=== PATIENT | female | born 1945 | race Caucasian/White ===

== ENCOUNTER → 2016-07-05 | Outpatient (CLI) | payer OTHER | LOC: BHFA 13:00 | PROVIDERS: ATTEND Internal Medicine Cardiovascular Disease | DX: R55 Syncope and collapse (principal) ==

== ENCOUNTER → 2016-07-07 | Outpatient (CLI) | payer OTHER | LOC: BHFA 13:00 | PROVIDERS: ATTEND Internal Medicine Cardiovascular Disease | DX: R55 Syncope and collapse (principal) | CPT/HCPCS: 78452; 93017; 93306; A9500; J2785 ==

== ENCOUNTER → 2016-08-12 | Outpatient (CLI) | payer OTHER | LOC: BHCLAF 14:45 | PROVIDERS: ATTEND Internal Medicine Cardiovascular Disease | DX: R55 Syncope and collapse (principal) | CPT/HCPCS: 93880-PO ==

== ENCOUNTER → 2016-09-06 | Outpatient (CLI) | payer OTHER | LOC: FIMAGING 19:54 | DX: M41.86 Other forms of scoliosis, lumbar region (principal) ==

== ENCOUNTER 2017-05-18 10:44 | Outpatient (CLI) | payer OTHER ==
[2017-05-18] MEDS ORDERED: PROPOFOL/EMULSION 500 MG/50 ML BOTTLE IV ONE (11:37)
[2017-05-18] MEDS ORDERED: PROPOFOL 200 MG/20 ML VIAL ONE (11:37)
[2017-05-18] MEDS ORDERED: GADOBUTROL 10 ML VIAL IVP ONE (12:53)
[2017-05-18] MEDS ORDERED: MIDAZOLAM 2 MG/2 ML VIAL ONE (13:05)
[2017-05-18] MEDS ORDERED: fentaNYL 100 MCG/2 ML INJ ONE (13:05)
[2017-05-18] MEDS ORDERED: ALBUTEROL 3 ML DEYVIAL IH PRN (14:09)
[2017-05-18] MEDS ORDERED: ACETAMINOPHEN 500 MG TAB PO PRN (14:09)
[2017-05-18] MEDS ORDERED: ONDANSETRON 4 MG/2 ML VIAL IVP PRN (14:09)
[2017-05-18] MEDS ORDERED: NALOXONE HCL 0.4 MG/ML INJ IVP PRN (14:09)
[2017-05-18] MEDS ORDERED: LR 500 ML IV PRN (14:09)
[2017-05-18] MEDS ORDERED: LABETALOL HCL 5 MG/ML 20 ML MDV IVP PRN (14:09)
[2017-05-18] MEDS ORDERED: PHENYLEPHRINE HCL 100 MCG/ML SYR IVP PRN (14:09)
--- NOTE | 2017-05-18 14:14 | PDANEPAE ---
ANE History of Present Illness 71 year old woman for B breast MRI. History of severe anxiety associated with prior MRI. Requesting general anesthesia for prone position MRI. ANE Past Medical History - Cardiovascular History Hx Hypertension: No Hx Arrhythmias: No Hx Chest Pain: No Hx Coronary Artery / Peripheral Vascular Disease: No Hx CHF / Valvular Disease: No Hx Palpitations: No - Pulmonary History Hx COPD: Yes Hx Asthma/Reactive Airway Disease: Yes Hx Recent Upper Respiratory Infection: No Hx Oxygen in Use at Home: No Hx Sleep Apnea: No Sleep Apnea Screening Result - Last Documented: Negative Pulmonary History Comment: [place] - Neurologic History Hx Cerebrovascular Accident: No Hx Seizures: No Hx Dementia: No - Endocrine History Hx Diabetes: No - Renal History Hx Renal Disorders: No - Liver History Hx Hepatic Disorders: No - Neurological & Psychiatric Hx Hx Neurological and Psychiatric Disorders: Yes Neurological / Psychiatric History Comment: Depression. Anxiety - Cancer History Hx Cancer: Yes Cancer History Comment: Left breast - Congenital Disorder History Hx Congenital Disorders: No - GI History Hx Gastrointestinal Disorders: Yes Gastrointestinal History Comment: IBS. Acid reflux. Diverticulosis - Chronic Pain History Chronic Pain: Yes - Surgical History Prior Surgeries: Hysterectomy. Appendectomy. Bilat rotator cuff. Bilat knee scoped. Right elbow. Tympanomastoidectomy. Tympanoplasty x2. Sinus lift oral surgery. Lumpectomy left breast ANE Review of Systems Review of systems is: negative Review of Systems: - Exercise capacity METS (RN): 2 METS ANE Patient History - Allergies Allergies/Adverse Reactions: aripiprazole [From Abilify] Allergy (Severe, Verified 04/12/17 18:14) Other-Enter Comments iodine Allergy (Severe, Verified 08/30/12 18:01) Anaphylaxis metoclopramide HCl [From Reglan] Allergy (Severe, Verified 08/30/12 18:01) throat swelling/SOB Sulfa (Sulfonamide Antibiotics) Allergy (Severe, Verified 08/30/12 18:01) Anaphylaxis celecoxib [From Celebrex] Allergy (Intermediate, Verified 04/12/17 18:17) Dyspnea clindamycin HCl [From Cleocin] Allergy (Intermediate, Verified 08/30/12 18:01) Rash clindamycin palmitate HCl [From Cleocin] Allergy (Intermediate, Verified 18:01) Rash clindamycin phosphate [From Cleocin] Allergy (Intermediate, Verified 08/30/12 18 :01) Rash estrogens, conjugated [From Premarin] Allergy (Intermediate, Verified 04/12/17 18:17) Rash Penicillins Allergy (Intermediate, Verified 08/30/12 18:01) Rash phenobarbital Allergy (Intermediate, Verified 08/30/12 18:01) Rash rosuvastatin [From Crestor] Allergy (Intermediate, Verified 04/12/17 18:16) Rash tetracycline [Tetracycline] Allergy (Intermediate, Verified 08/30/12 18:01) Rash Tetracyclines Allergy (Intermediate, Verified 08/30/12 18:01) Rash amoxicillin [From Augmentin] Allergy (Verified 04/17/17 15:50) atorvastatin Allergy (Verified 04/17/17 15:50) Barbiturates Allergy (Verified 04/17/17 15:50) clavulanic acid [From Augmentin] Allergy (Verified 04/17/17 15:50) clindamycin [From Cleocin] Allergy (Verified 04/17/17 15:50) Estrogens Allergy (Verified 04/17/17 15:50) Gadolinium-Containing Contrast Medi Allergy (Verified 04/17/17 15:47) throat swelling/SOB gluten Allergy (Verified 04/17/17 15:50) latex Allergy (Verified 04/11/17 14:09) lovastatin Allergy (Verified 04/17/17 15:50) peanut Allergy (Verified 04/17/17 15:50) pravastatin Allergy (Verified 04/17/17 15:50) simvastatin Allergy (Verified 04/17/17 15:50) "Bee stings" Allergy (Severe, Uncoded 04/12/17 18:15) Anaphylaxis peanuts Allergy (Severe, Uncoded 08/30/12 18:01) throat swelling/SOB "statins" Allergy (Intermediate, Uncoded 04/12/17 18:15) Dyspnea - Home Medications Home Medications: Albuterol [Proventil Inhaler] 1 - 2 puffs IH AD PRN 08/30/12 [Last Taken Unknown ] Estradiol [Estrace Vaginal] 0 gm VAG .TWICE WEEKLY 08/30/12 [Last Taken Unknown] Ezetimibe [Zetia 10 MG (RX)] 10 mg PO HS 08/30/12 [Last Taken Unknown] Hrt Shot .MONTHLY 08/30/12 [Last Taken Unknown] Ibuprofen [Motrin] 800 mg PO AD PRN 08/30/12 [Last Taken 05/11/17 1900] Levothyroxine [Synthroid 175 mcg (RX)] 175 mcg PO DAILY06 08/30/12 [Last Taken 05/18/17 0500] Rabeprazole Sodium [Aciphex] 20 mg PO BID 08/30/12 [Last Taken 05/18/17 0500] Spironolactone [Aldactone 25 MG (RX)] 100 mg PO BID 08/30/12 [Last Taken 0500] Tiotropium Inhaler [Spiriva Inhaler (RX)] 1 inh IH DAILY 08/30/12 [Last Taken 0500] buPROPion SR [Wellbutrin 100mg SR (RX)] 300 mg PO BID 08/30/12 [Last Taken 05/18 0430] HYDROCORTISONE/IODOQUINOL 04/12/17 [Last Taken 05/11/17 1900] Hydrocodone/Acetaminophen [Hydrocodone-Acetamin 7.5-325] 04/12/17 [Last Taken 05/18/17 0500] - Smoking Hx Smoking Status: Former smoker - Family Anes Hx Family Hx Anesthesia Complications: None ANE Labs/Vital Signs - Labs Result Diagrams: 05/18/17 11:53 - Vital Signs Blood Pressure: 115/83 Heart Rate: 111 Respiratory Rate: 18 O2 Sat (%): 92 Height: 152.4 cm Weight: 68.946 kg ANE Physical Exam - Airway Neck exam: FROM Mallampati Score: Class 3 Mouth exam: normal dental/mouth exam - Pulmonary Pulmonary: no respiratory distress - Cardiovascular Cardiovascular: regular rate and rhythym - ASA Status ASA Status: III ANE Anesthesia Plan Anesthesia Plan: general endotracheal anesthesia Specialized Airway: video laryngoscope
--- NOTE | 2017-05-18 14:49 | POSTANESTH ---
Post Anesthetic Evaluation Cardiovascular Status: Normal, Stable Respiratory Status: Normal, Stable Level of Consciousness/Mental Status: Can Participate in Eval Pain Control: Adequate, Prn Tx Ordered Nausea/Vomiting Control: Adequate, Prn Tx Ordered Complications Possibly Related to Anesthesia: None Noted
[2017-05-18 15:37] VITALS: BP 122/85; PULSE 105; RESP 12; TEMP 97.5
[2017-05-18] MEDS ORDERED: ONDANSETRON 4 MG/2 ML VIAL ONE (16:27)
[2017-05-18] MEDS ORDERED: DEXAMETHASONE 10 MG/ML VIAL ONE (16:27)
[2017-05-18] MEDS ORDERED: LIDOCAINE 2% 2 ML INJ ONE (16:42)
[2017-05-18 16:44] VITALS: O2SAT 93
== END 2017-05-18 16:00 | disposition home or self-care (01) ==
LOC: FIMAGING 10:44
PROVIDERS: ATTEND Internal Medicine Hematology & Oncology
DX: D05.02 Lobular carcinoma in situ of left breast (principal); N62 Hypertrophy of breast
CPT/HCPCS: 0159T; A9585; C8908; J1100; J2250; J2370; J2405; J2704; J3010

== ENCOUNTER → 2017-07-24 | Outpatient (CLI) | payer OTHER | LOC: FIMAGING 18:37 | DX: M51.36 Other intervertebral disc degeneration, lumbar region (principal) ==

== ENCOUNTER 2017-09-28 10:55 | Outpatient (CLI) | payer OTHER ==
[2017-09-28] MEDS ORDERED: GADOBUTROL 10 ML VIAL IVP ONE (12:49)
[2017-09-28] MEDS ORDERED: MIDAZOLAM 2 MG/2 ML VIAL ONE (13:10)
[2017-09-28] MEDS ORDERED: PROPOFOL/EMULSION 500 MG/50 ML BOTTLE IV ONE (13:10)
[2017-09-28] MEDS ORDERED: fentaNYL 100 MCG/2 ML INJ ONE (13:10)
[2017-09-28] MEDS ORDERED: LR 1,000 ML IV SCH (13:30)
--- NOTE | 2017-09-28 13:57 | PDANEPAE ---
ANE History of Present Illness Patient for MRI of breast with MAC. Severe anxiety associated with MRI. History of COPD. History of difficult airway. ANE Past Medical History - Cardiovascular History Hx Hypertension: No Hx Arrhythmias: No Hx Chest Pain: No Hx Coronary Artery / Peripheral Vascular Disease: No Hx CHF / Valvular Disease: No Hx Palpitations: No - Pulmonary History Hx COPD: Yes Hx Asthma/Reactive Airway Disease: Yes Hx Recent Upper Respiratory Infection: No Hx Oxygen in Use at Home: No Hx Sleep Apnea: No Sleep Apnea Screening Result - Last Documented: Negative Pulmonary History Comment: [place] - Neurologic History Hx Cerebrovascular Accident: No Hx Seizures: No Hx Dementia: No - Endocrine History Hx Diabetes: No Endocrine History Comment: hypoglycemia - Renal History Hx Renal Disorders: No - Liver History Hx Hepatic Disorders: No - Neurological & Psychiatric Hx Hx Neurological and Psychiatric Disorders: Yes Neurological / Psychiatric History Comment: Depression. Anxiety. PTSD - Cancer History Hx Cancer: Yes Cancer History Comment: Left breast - Congenital Disorder History Hx Congenital Disorders: No - GI History Hx Gastrointestinal Disorders: Yes Gastrointestinal History Comment: IBS. Acid reflux. Diverticulosis - Chronic Pain History Chronic Pain: Yes - Surgical History Prior Surgeries: Hysterectomy. Appendectomy. Bilat rotator cuff. Bilat knee scoped. Right elbow. Tympanomastoidectomy. Tympanoplasty x2. Sinus lift oral surgery. Lumpectomy left breast ANE Review of Systems Review of systems is: negative Review of Systems: - Exercise capacity METS (RN): 4 METS ANE Patient History - Allergies Allergies/Adverse Reactions: aripiprazole [From Abilify] Allergy (Severe, Verified 09/27/17 17:40) Other-Enter Comments iodine Allergy (Severe, Verified 09/27/17 17:40) Anaphylaxis metoclopramide HCl [From Reglan] Allergy (Severe, Verified 09/27/17 17:40) throat swelling/SOB Sulfa (Sulfonamide Antibiotics) Allergy (Severe, Verified 09/27/17 17:40) Anaphylaxis celecoxib [From Celebrex] Allergy (Intermediate, Verified 09/27/17 17:40) Dyspnea clindamycin HCl [From Cleocin] Allergy (Intermediate, Verified 09/27/17 17:40) Rash clindamycin palmitate HCl [From Cleocin] Allergy (Intermediate, Verified 17:40) Rash clindamycin phosphate [From Cleocin] Allergy (Intermediate, Verified 09/27/17 17 :40) Rash estrogens, conjugated [From Premarin] Allergy (Intermediate, Verified 09/27/17 17:40) Rash Penicillins Allergy (Intermediate, Verified 09/27/17 17:40) Rash phenobarbital Allergy (Intermediate, Verified 09/27/17 17:40) Rash rosuvastatin [From Crestor] Allergy (Intermediate, Verified 09/27/17 17:40) Rash tetracycline [Tetracycline] Allergy (Intermediate, Verified 09/27/17 17:40) Rash Tetracyclines Allergy (Intermediate, Verified 09/27/17 17:40) Rash amoxicillin [From Augmentin] Allergy (Verified 09/27/17 17:40) Rash atorvastatin Allergy (Verified 09/27/17 17:40) Rash Barbiturates Allergy (Verified 09/27/17 17:40) Rash clavulanic acid [From Augmentin] Allergy (Verified 09/27/17 17:40) Rash clindamycin [From Cleocin] Allergy (Verified 09/27/17 17:40) Rash Estrogens Allergy (Verified 09/27/17 17:40) Rash Gadolinium-Containing Contrast Medi Allergy (Verified 09/27/17 17:40) throat swelling/SOB latex Allergy (Verified 09/27/17 17:40) Rash lovastatin Allergy (Verified 09/27/17 17:40) Rash peanut Allergy (Verified 09/27/17 17:40) Rash pravastatin Allergy (Verified 09/27/17 17:40) Rash simvastatin Allergy (Verified 09/27/17 17:40) Rash "Bee stings" Allergy (Severe, Uncoded 09/27/17 17:40) Anaphylaxis peanuts Allergy (Severe, Uncoded 09/27/17 17:40) throat swelling/SOB "statins" Allergy (Intermediate, Uncoded 09/27/17 17:40) Dyspnea - Home Medications Home Medications: Albuterol [Proventil Inhaler] 1 - 2 puffs IH AD PRN 08/30/12 [Last Taken ] Estradiol [Estrace Vaginal] 0 gm VAG .TWICE WEEKLY 08/30/12 [Last Taken 09/26/17 ] Ezetimibe [Zetia 10 MG (RX)] 10 mg PO HS 08/30/12 [Last Taken 09/27/17] Ibuprofen [Motrin] 800 mg PO AD PRN 08/30/12 [Last Taken 05/11/17 1900] Levothyroxine [Synthroid 175 mcg (RX)] 175 mcg PO DAILY06 08/30/12 [Last Taken 09/28/17] Rabeprazole Sodium [Aciphex] 20 mg PO BID 08/30/12 [Last Taken 09/28/17] Spironolactone [Aldactone 25 MG (RX)] 100 mg PO DAILY 08/30/12 [Last Taken 09/28] Tiotropium Inhaler [Spiriva Inhaler (RX)] 1 inh IH DAILY 08/30/12 [Last Taken ] buPROPion SR [Wellbutrin 100mg SR (RX)] 400 mg PO DAILY 08/30/12 [Last Taken ] HYDROCORTISONE/IODOQUINOL 04/12/17 [Last Taken 09/26/17] Hydrocodone/Acetaminophen [Hydrocodone-Acetamin 7.5-325] 1 tab PO Q6H 04/12/17 [ Last Taken 09/28/17] Estradiol 2 patch 09/27/17 [Last Taken 09/28/17] Citracal 09/28/17 [Last Taken 09/25/17] Preservision Areds 2 Softgel 2 PO BID 09/28/17 [Last Taken 09/25/17] - Smoking Hx Smoking Status: Former smoker - Family Anes Hx Family Hx Anesthesia Complications: None ANE Labs/Vital Signs - Vital Signs Blood Pressure: 113/76 Heart Rate: 98 Respiratory Rate: 16 O2 Sat (%): 93 Height: 152.4 cm Weight: 67.585 kg ANE Physical Exam - Airway Neck exam: FROM Mallampati Score: Class 4 - Pulmonary Pulmonary: no respiratory distress - Cardiovascular Cardiovascular: regular rate and rhythym - ASA Status ASA Status: III ANE Anesthesia Plan Anesthesia Plan: MAC
[2017-09-28] MEDS ORDERED: ALBUTEROL 3 ML DEYVIAL IH PRN (13:58)
[2017-09-28] MEDS ORDERED: DEXAMETHASONE 4 MG/ML VIAL IVP PRN (13:58)
[2017-09-28] MEDS ORDERED: HYDROCODONE/APAP 5/325 TAB PO PRN (13:58)
[2017-09-28] MEDS ORDERED: ONDANSETRON 4 MG/2 ML VIAL IVP PRN (13:58)
[2017-09-28] MEDS ORDERED: NALOXONE HCL 0.4 MG/ML INJ IVP PRN (13:58)
[2017-09-28] MEDS ORDERED: fentaNYL 100 MCG/2 ML INJ IVP PRN (13:58)
[2017-09-28 15:56] VITALS: BP 119/60
== END 2017-09-28 16:00 | disposition home or self-care (01) ==
LOC: FIMAGING 10:55
PROVIDERS: ATTEND Nurse Practitioner
DX: N60.11 Diffuse cystic mastopathy of right breast (principal); N60.12 Diffuse cystic mastopathy of left breast; Z86.000 Personal history of in-situ neoplasm of breast
CPT/HCPCS: 0159T; A9585; C8908; J2250; J2704; J3010

== ENCOUNTER 2018-09-17 13:40 | Outpatient (CLI) | payer OTHER | END 2018-09-17 18:06 | disposition home or self-care (01) | LOC: FIMAGING 13:40 ==

== ENCOUNTER → 2018-09-21 | Outpatient (CLI) | payer OTHER | LOC: FIMAGING 13:55 ==